=== PATIENT | female | born 1955 | race Caucasian/White ===

== ENCOUNTER → 2017-01-03 | Outpatient (CLI) | payer BC ==
[~2017-01-03] MED LIST: CENTRUM SILVER PO; NO MEDICATIONS; ULTRAM PO
--- NOTE | ~2017-01-03 | CR63 ---
[facility] A Service of [facility] & [facility] RADIOLOGY TEXT RESULTS PATIENT: BISHOP MISHRA LOCATION: [facility] : 57 UNIT #: [id number] AGE: [address]: Jason Mercer MD SEX: F ORDER DR: [id number] [facility] [address] [place], [place] [address] [id number] O MR#: [id number] Acc #: [id number] NAME: BISHOP MISHRA : 1955 SEX: F STUDY DATE/TIME: 01/03/2017 9:32 UNIT: [facility] ROOM: STUDY DESCRIPTION: CR Chest 2 View Attending Physician: Jason Mercer M.D. Referring Physician: Jason Mercer M.D. Ordering Physician: Jason Mercer M.D. Primary Care Physician: Jason Mercer M.D. MEDICAL IMAGING REPORT This report is preliminary unless electronic signature is present EXAM Chest, PA and lateral, 01/03/2017. HISTORY Shortness of breath for 4 weeks. FINDINGS The heart is normal in size. The lungs are hyperinflated but otherwise clear. There are no pleural effusions. IMPRESSION Hyperinflation lungs. No active pulmonary disease. Dictated by... Elian Slater M.D. THIS IS AN ELECTRONICALLY VERIFIED REPORT Elian Slater M.D. at 01/04/2017 10:17 AM SONALI/lacy TD: 01/03/2017 14:00 JOB #: [id number] MEDICAL IMAGING REPORT Page 1 of 1 COPY
== END | disposition home or self-care (01) ==
LOC: CRAD 09:18
DX: R06.02 Shortness of breath (principal); R91.8 Other nonspecific abnormal finding of lung field
CPT/HCPCS: 71020